=== PATIENT | female | born 1945 | race Caucasian/White ===

== ENCOUNTER → 2016-10-30 | Outpatient (CLI) | payer MEDICARE, OTHER ==
[~2016-10-30] MED LIST: AMLO5TAB2 PO; ASPI-496 PO; BENA20TA2 PO; CALC-116 PO; CHOL10002 PO; KRIL1CAP PO; LEG CRAMPS TAB PO; MAGNESIUM PO; MULT-230 PO; PANT20TA3 PO; SIMV20TA3 PO
[2016-10-30 15:41] LABS: HEMOGLOBIN 14.2 g/dL (11.7-16.4)
[2016-10-30 15:54] LABS: ASPARTATE AMINO TRANSFERASE 23 U/L (15-37); BLOOD UREA NITROGEN 18 mg/dL (7-18)
[2016-11-01 11:06] LABS: THYROGLOBULIN AB <1.0 IU/mL (0.0-0.9); THYROGLOBULIN QUANT 58.3 ng/mL (1.5-38.5)
== END | disposition home or self-care (01) ==
LOC: STAR 14:19
PROVIDERS: ATTEND Surgery
DX: Z01.818 Encounter for other preprocedural examination (principal); K21.9 Gastro-esophageal reflux disease without esophagitis; E78.00 Pure hypercholesterolemia, unspecified; I10 Essential (primary) hypertension; E04.1 Nontoxic single thyroid nodule; I87.2 Venous insufficiency (chronic) (peripheral); M19.90 Unspecified osteoarthritis, unspecified site; I77.9 Disorder of arteries and arterioles, unspecified; G47.30 Sleep apnea, unspecified; E66.9 Obesity, unspecified; M54.9 Dorsalgia, unspecified
CPT/HCPCS: 36415; 71020; 80053; 84432; 85025; 86800; 93005